=== PATIENT | female | born 1970 | race American Indian/Alaskan Native ===

== ENCOUNTER 2018-01-19 10:01 | Emergency (ER) | payer SELFPAY ==
[2018-01-19] MEDS ORDERED: ANTIVERT PO ONE (10:50)
--- NOTE | 2018-01-19 10:50 | Emergency Department Report ---
ED Chest Pain HPI - General Chief Complaint: Chest Pain Stated Complaint: TIGHT CHEST/HEADACHE Time Seen by Provider: 01/19/18 10:24 Source: patient Mode of arrival: Ambulatory Limitations: No Limitations - History of Present Illness Initial Comments: 47-year-old [place] female presents to the emergency department with complaint of some generalized chest tightness and a generalized headache that has been going on since last night. She denies any vomiting, fever, back pain or diaphoresis. The headache is 8 out of 10 in intensity and the chest tightness is 7 out of 10 in intensity. She has some exertional shortness of breath. She does not have a primary care physician. She denies any significant past medical history other than some occasional vertigo. No recent travel or sick contacts at home. She denies any tobacco or illicit drug use or abuse. She did not take anything for her symptoms prior to arrival. - Related Data Previous Rx's Medication Instructions Recorded Last Taken Type Amlodipine Besylate [Norvasc] 2.5 mg PO QDAY #20 tablet 01/19/18 Unknown Rx HYDROcodone/APAP 5-325 [[place] 1 each PO Q6HR PRN #10 tablet 01/19/18 Unknown Rx 5/325] Allergies Allergy/AdvReac Type Severity Reaction Status Date / Time No Known Allergies Allergy Unverified 01/19/18 10:12 Heart Score - HEART Score History: Moderately suspicious EKG: Normal Age: 45-65 Risk factors: No known risk factors Troponin: < normal limit HEART Score: 2 - Critical Actions Critical Actions: 0-3 pts:0.9-1.7%risk of adverse cardiac event.Candidate for discharge ED Review of Systems ROS: Stated complaint: TIGHT CHEST/HEADACHE Other details as noted in HPI Comment: All other systems reviewed and negative Constitutional: denies: chills, fever Eyes: denies: eye pain, eye discharge, vision change ENT: denies: ear pain, throat pain Respiratory: SOB with exertion. denies: cough Cardiovascular: chest pain. denies: edema Gastrointestinal: denies: abdominal pain, nausea, diarrhea Genitourinary: denies: urgency, dysuria, discharge Musculoskeletal: denies: back pain, joint swelling, arthralgia Skin: denies: rash, lesions Neurological: headache. denies: weakness, numbness, paresthesias ED Past Medical Hx - Past Medical History Previous Medical History?: Yes Additional medical history: vertigo - Surgical History Past Surgical History?: Yes Additional Surgical History: x 2 - Social History Smoking Status: Never Smoker Substance Use Type: None - Medications Home Medications: Home Medications Medication Instructions Recorded Confirmed Last Taken Type Amlodipine Besylate [Norvasc] 2.5 mg PO QDAY #20 tablet 01/19/18 Unknown Rx HYDROcodone/APAP 5-325 [[place] 1 each PO Q6HR PRN #10 tablet 01/19/18 Unknown Rx 5/325] ED Physical Exam - General Limitations: No Limitations - Other Other exam information: GENERAL: The patient is well-developed well-nourished. HENT: Normocephalic. Atraumatic. Patient has moist mucous membranes. EYES: Extraocular motions are intact. Pupils equal reactive to light bilaterally. The tube will horizontal nystagmus. NECK: Supple. Trachea is midline. CHEST/LUNGS: Clear to auscultation. There is no respiratory distress noted. HEART/CARDIOVASCULAR: Regular. There is no tachycardia. There is no murmur. ABDOMEN: Abdomen is soft, nontender. Patient has normal bowel sounds. There is no abdominal distention. SKIN: Skin is warm and dry. NEURO: The patient is awake, alert, and oriented. The patient is cooperative. The patient has no focal neurologic deficits. The patient has normal speech. Cranial nerves II through XII grossly intact. No pronator drift. No dysmetria. MUSCULOSKELETAL: There is no tenderness or deformity. There is no limitation range of motion. There is no evidence of acute injury. ED Course Vital Signs 01/19/18 01/19/18 01/19/18 10:12 10:44 11:01 Temperature 98.7 F Pulse Rate 91 H Respiratory 18 Rate Blood Pressure 155/99 133/91 150/84 Blood Pressure [Left] O2 Sat by Pulse 99 Oximetry 01/19/18 01/19/18 01/19/18 11:16 11:28 12:09 Temperature Pulse Rate 69 69 Respiratory 16 Rate Blood Pressure 150/84 Blood Pressure [Left] O2 Sat by Pulse 99 100 Oximetry 01/19/18 01/19/18 01/19/18 12:16 12:30 12:46 Temperature Pulse Rate 68 Respiratory 19 16 Rate Blood Pressure 150/84 150/84 Blood Pressure [Left] O2 Sat by Pulse 97 98 98 Oximetry 01/19/18 01/19/18 01/19/18 13:30 14:00 14:09 Temperature Pulse Rate 64 73 Respiratory 18 20 17 Rate Blood Pressure 139/95 151/97 Blood Pressure [Left] O2 Sat by Pulse 98 98 Oximetry 01/19/18 01/19/18 14:30 15:08 Temperature Pulse Rate 78 73 Respiratory 15 18 Rate Blood Pressure 139/95 Blood Pressure 132/87 [Left] O2 Sat by Pulse 99 98 Oximetry SHELDON score - Sheldon Score Age > 65: (0) No Aspirin use within the Past 7 Days: (0) No 3 or more CAD Risk Factors: (0) No 2 or more Angina events in past 24 hrs: (1) Yes Known CAD with more than 50% Stenosis: (0) No Elevated Cardiac Markers: (0) No ST Deviation Greater than 0.5mm: (0) No SHELDON Score: 1 ED Medical Decision Making - Lab Data Result diagrams: 01/19/18 10:22 01/19/18 10:22 - EKG Data -: EKG Interpreted by Me EKG shows normal: sinus rhythm, axis, intervals, QRS complexes, ST-T waves Rate: normal - EKG Data When compared to previous EKG there are: previous EKG unavailable Interpretation: normal EKG - Radiology Data Radiology results: report reviewed, image reviewed interpreted by me: Chest x-ray does not show any acute process. There are no pleural effusions, obvious pneumonia and there is no pneumothorax. CT of the head does not show any acute intracranial process including no ischemia, shift, mass, bleeding or skull fracture. - Medical Decision Making This patient presents with a complaint of a headache and some chest tightness since last night. Heart and lungs sounds are normal to auscultation. There is no focal, motor or sensory deficits and her cranial nerves are intact. EKG did not show any signs of ST elevation PR, ischemia or dysrhythmia. Labs were mostly unremarkable including negative troponins 2 as well as a negative d- dimer. CT of the head did not show any bleed, shift, mass, ischemia or any other acute process. There were no signs of any infection. Vital signs stable throughout her ED course including being afebrile. The patient was given some aspirin, Toradol and Tylenol. This basically resolved her chest discomfort and improved her headache but it did not completely resolve. 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 She had some transient elevations her blood pressure. She is very concerned about this as she says she normally has a systolic of about 100. She does not smoke and does not appear to consume any caffeinated drinks or salty products. She has been placed on a very low dose of amlodipine, 2.5 mg, and she has been instructed to keep a blood pressure log to see if it is working for her and make sure that she does not drop down to low. She has been given a small amount pain medication to take when she is not driving, working, being responsible for children and she understands that I'll call cannot be mixed with this medication. She is going to return to the emergency department immediately with any return of her chest pain, worsening of her headache, development of any neurological deficits, or with any acute distress. All of her questions have been answered. - Differential Diagnosis tension headache, migraine, PR, PE, costochondritis Critical Care Time: No Critical care attestation.: If time is entered above; I have spent that time in minutes in the direct care of this critically ill patient, excluding procedure time. ED Disposition Clinical Impression: Chest tightness Hypertension Qualifiers: Hypertension type: essential hypertension Qualified Code(s): I10 - Essential ( primary) hypertension Headache Qualifiers: Headache type: unspecified Headache chronicity pattern: unspecified pattern Disposition: DC-01 TO HOME OR SELFCARE Is pt being admited?: No Condition: Stable Instructions: Chest Pain (ED), Acute Headache (ED), Hypertension (ED) Additional Instructions: Please follow up with a primary care physician in the next few days. I have given him multiple referrals for primary care physicians and clinics in the area. I am also giving him a referral for a local public health advisor, Dr. Andrew, to follow up regarding your previous chest tightness. Return to the emergency Department with any worsening of your symptoms, return of her chest pain, or with any acute distress. I'm starting youon a blood pressure medication called amlodipine/Norvasc that is taken once per day, usually in the morning. Keep a blood pressure log so that you can see if it is working and make sure it is not dropping your blood pressure too low. You have been prescribed a medication that is sedating and therefore should not be taken prior to driving, working, and responsible for children and in no way should be mixed with alcohol of any quantity. Prescriptions: Amlodipine Besylate [Norvasc] 2.5 mg PO QDAY #20 tablet HYDROcodone/APAP 5-325 [[place] 5/325] 1 each PO Q6HR PRN #10 tablet PRN Reason: Pain Referrals: VICKI ANDREW MD [Staff Physician] - 2-3 Days SURESH HINOJOSA MD [Staff Physician] - 2-3 Days BETTY NORTON MD [Staff Physician] - 2-3 Days [facility] [Outside] - 2-3 Days PRIMARY MD LAURA [Primary Care Provider] - 2-3 Days Time of Disposition: 14:57
[2018-01-19 10:51] LABS: Basophils % (Auto) 0.2 % (0.0-1.8); Eosinophils # (Auto) 0.1 K/mm3 (0.0-0.4); Eosinophils % (Auto) 1.8 % (0.0-4.3); Hematocrit 39.7 % (30.3-42.9); Hemoglobin 12.8 gm/dl (10.1-14.3); Lymphocytes % (Auto) 47.6 % (13.4-35.0); Mean Corpuscular HGB Conc 32 % (30-34); Mean Corpuscular Hemoglobin 25 pg (28-32); Mean Corpuscular Volume 79 fl (79-97); Monocytes # (Auto) 0.4 K/mm3 (0.0-0.8); Monocytes % (Auto) 8.9 % (0.0-7.3); Platelet Count 256 K/mm3 (140-440); Red Blood Count 5.04 M/mm3 (3.65-5.03)
[2018-01-19 11:08] LABS: BUN/Creatinine Ratio 11; Blood Urea Nitrogen 9 mg/dL (7-17); Calcium 9.8 mg/dL (8.4-10.2); Hemolysis Index 25
[2018-01-19] MEDS ORDERED: BABY ASPIRIN PO ONE (11:10)
--- NOTE | 2018-01-19 11:28 | XRay Report ---
ROUTINE CHEST, TWO VIEWS: HISTORY: chest pain. The trachea, heart, mediastinal contour, lung amor and bony thorax are unremarkable. IMPRESSION: Unremarkable chest x-ray.
[2018-01-19] MEDS ORDERED: TYLENOL PO ONE (11:30)
--- NOTE | 2018-01-19 12:12 | Cat Scan Report ---
CT HEAD WITHOUT CONTRAST: HISTORY: Headache. TECHNIQUE: Sequential 2.5mm CT images. COMPARISON: none. FINDINGS: Cerebral Parenchyma: Within normal limits. Cerebellum: Within normal limits. Brainstem: Within normal limits. Ventricles: Normal. Sella: Normal. Extra-axial spaces: Normal. Basal Cisterns: Normal. Intracranial Hemorrhage: None. Midline Shift: None. Calvarium: Normal. Sinuses: Normal. Mastoid Air Cells: Normal. Visualized Orbits: Normal. IMPRESSION: Cranial CT scan within normal limits.
[2018-01-19] MEDS ORDERED: TORADOL IM ONE (13:41)
[2018-01-19 15:09] VITALS: BP 132/87
== END 2018-01-19 15:09 | disposition home or self-care (01) ==
LOC: ED 10:01
DX: R07.89 Other chest pain (principal); I10 Essential (primary) hypertension
CPT/HCPCS: 36415; 70450; 71046; 80048; 84484; 84703; 85025; 85379; 93005; 93010; 96372; 99285; J1885